=== PATIENT | male | born 1965 | race Caucasian/White ===

== ENCOUNTER → 2017-09-12 | Outpatient (CLI) | payer BC ==
[~2017-09-12] MED LIST: ALLO100; HYDCHL12.5; IBUP800 PO; LEVSOD75; Lovenox80 MG/0.8 SC
== END | disposition home or self-care (01) ==
LOC: LAB EV 11:14
DX: R73.9 Hyperglycemia, unspecified (principal); Z79.01 Long term (current) use of anticoagulants
CPT/HCPCS: 36416; 83036; 85610